=== PATIENT | male | born 1955 | race African-American/Black ===

== ENCOUNTER 2024-09-26 03:02 | Emergency (ER) | payer BC, OTHER ==
[2024-09-26 03:13] VITALS: RESP 18; BMI 34.2
[2024-09-26] MEDS ORDERED: METOCLOPRAMIDE HCL INJECTION 10 MG/2 ML VIAL ONE (03:32)
[2024-09-26] MEDS ORDERED: ACETAMINOPHEN INJECTION 100 ML ONE (03:32)
[2024-09-26] MEDS: ACETAMINOPHEN 1000 MG/100 ML BAG IVPB ONE (03:57)
[2024-09-26] MEDS: METOCLOPRAMIDE HCL INJECTION 10 MG/2 ML VIAL IVPB ONE (03:58)
[2024-09-26 09:15] LABS: BASO % 0.4 % (0-2.0); EOS % 0.3 % (0-4.5); HEMATOCRIT 37.1 % (35.4-49); HEMOGLOBIN 12.5 GM/dL (11.7-16.9); LYMPH % 11.5 % (8-40); MCH 30.6 pg (25.7-33.7); MCHC 33.5 g/dl (32.0-35.9); MEAN CELL VOLUME 91.3 fl (80-96); MEAN PLT VOLUME 8.7 fl (7.5-11.1); MONO % 8.1 % (3.8-10.2); NEUT % 79.7 % (42.8-82.8); PLATELET COUNT 176 10^3/uL (134-434); RBC 4.07 M/mm3 (4.00-5.60); WHITE BLOOD COUNT 5.9 K/mm3 (4.0-10.0)
[2024-09-26 09:22] LABS: INR 1.14 (0.83-1.09); PROTHROMBIN TIME (PATIENT) 12.4 SEC (9.7-13.0)
[2024-09-26 09:24] LABS: ACTIVATED PTT 29.6 SECONDS (25.2-36.5)
[2024-09-26 09:38] LABS: POTASSIUM 3.8 mmol/L (3.5-5.1)
[2024-09-26 09:41] LABS: ALBUMIN 3.6 g/dl (3.4-5.0); CALCIUM 9.7 mg/dL (8.5-10.1)
[2024-09-26 09:42] LABS: BLOOD UREA NITROGEN 13.3 mg/dL (7-18)
[2024-09-26 09:44] LABS: CREATININE 0.9 mg/dL (0.55-1.3)
[2024-09-26 09:45] LABS: BILIRUBIN,TOTAL 0.4 mg/dL (0.2-1)
[2024-09-26] MEDS ORDERED: niCARdipine HCL 25 MG/10 ML - 10 ML VIAL IV ONE (12:45)
[2024-09-26 13:28] VITALS: TEMP 99
[2024-09-26] MEDS ORDERED: niCARdipine HCL 25 MG/10 ML AMPUL IVPB ONE (14:06)
[2024-09-26] MEDS: NICARDIPINE 25 MG in DEXTROSE 5%-WATER - 240 ML IVPB SCH (14:14)
[2024-09-26 14:17] VITALS: BP 180/90; PULSE 89
[2024-09-26] MEDS ORDERED: CHLORHEXIDINE GLUCONATE 4% CLEANSER FOR DECOLONIZATION TP SCH (22:00)
[2024-09-26] MEDS ORDERED: MUPIROCIN 2% TOPICAL OINTMENT FOR DECOLONIZATION NS SCH (22:00)
== END 2024-09-26 14:18 | disposition short-term general hospital (02) ==
LOC: JER 03:02 → UNDOADMIN 10:08 → JERBED 10:08 → JER 14:18
PROC: 3E033NZ Introduction of Analgesics, Hypnotics, Sedatives into Peripheral Vein, Percutaneous Approach (ICD-10-PCS; principal; 2024-09-26)
PROC: 3E033GC Introduction of Other Therapeutic Substance into Peripheral Vein, Percutaneous Approach (ICD-10-PCS; 2024-09-26)
DX: S06.360A Traumatic hemorrhage of cerebrum, unspecified, without loss of consciousness, initial encounter (principal); W22.8XXA Striking against or struck by other objects, initial encounter
CPT/HCPCS: 36415; 70450-TC; 72125-TC; 72141-TC; 80053; 82962; 85025; 85610; 85730; 86850; 86900; 86901; 93005; 93010; 99285-25; J0131